=== PATIENT | female | born 2000 | race Caucasian/White ===

== ENCOUNTER 2019-03-24 16:57 | Emergency (ER) | payer OTHER ==
[2019-03-24 17:16] VITALS: BP 124/69; PULSE 83; RESP 16; TEMP 98
--- NOTE | 2019-03-24 18:29 | ED ---
Skin/Abscess/FB HPI - General Chief complaint: Needlestick/Exposure Stated complaint: [facility]-Needlestick Time Seen by Provider: 03/24/19 17:19 Source: patient Mode of arrival: ambulatory Limitations: no limitations - History of Present Illness Initial comments: Patient is a 18-year-old female presenting after a needlestick injury to her right index finger. 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 Patient is aware of the source. Patient states the area did bleed after the needlestick. Patient did wash the area immediately with soap and water. Patient was then recommended to come to ER for further evaluation. Patient denies fever, chills. No other complaints at this time. Upon arrival to ER, vital signs are stable. - Related Data Home Medications Medication Instructions Recorded Confirmed No Known Home Medications 05/22/14 05/22/14 Allergies Allergy/AdvReac Type Severity Reaction Status Date / Time No Known Allergies Allergy Verified 03/24/19 17:13 Review of Systems ROS Statement: Those systems with pertinent positive or pertinent negative responses have been documented in the HPI. ROS Other: All systems not noted in ROS Statement are negative. Past Medical History Past Medical History: No Reported History History of Any Multi-Drug Resistant Organisms: None Reported Past Surgical History: No Surgical Hx Reported Past Psychological History: No Psychological Hx Reported Smoking Status: Never smoker Past Alcohol Use History: None Reported Past Drug Use History: None Reported General Exam - General Exam Comments Initial Comments: GENERAL: Well-appearing, well-nourished and in no acute distress. HEAD: Atraumatic, normocephalic. EYES: Pupils equal round and reactive to light, extraocular movements intact, sclera anicteric, conjunctiva are normal. ENT: Nares patent, oropharynx clear without exudates. Moist mucous membranes. NECK: Normal range of motion, supple without lymphadenopathy or JVD. LUNGS: Breath sounds clear to auscultation bilaterally and equal. No wheezes rales or rhonchi. HEART: Regular rate and rhythm without murmurs, rubs or gallops. EXTREMITIES: Normal range of motion, no pitting or edema. No clubbing or cyanosis. NEUROLOGICAL: Cranial nerves II through XII grossly intact. Normal speech, normal gait. PSYCH: Normal mood, normal affect. SKIN: Warm, Dry, normal turgor, no rashes or lesions noted, including on the right index finger, palmar aspect. Limitations: no limitations Course Vital Signs 03/24/19 17:13 Temperature 98.0 F Pulse Rate 83 Respiratory 16 Rate Blood Pressure 124/69 O2 Sat by Pulse 100 Oximetry Medical Decision Making - Medical Decision Making Patient is a 18-year-old female presenting for needle stick injury to her right index finger that happened today. Patient is aware of the source who is a 2-year-old. Blood was not drawn from the source. The source is up-to-date with her vaccines. Patient is refusing blood testing and prophylactic treatment at this time. Patient will follow up with her PCP as needed. Patient is stable for discharge at this time. Return parameters were discussed with the patient she verbalized understanding. Case discussed with Dr. Garvin. Disposition Clinical Impression: Needlestick injury of finger of right hand Disposition: HOME SELF-CARE Condition: Stable Additional Instructions: Please return to the Emergency Department if symptoms worsen or any other concerns. Follow up with PCP as needed. Is patient prescribed a controlled substance at d/c from ED?: No Referrals: Silvina Zuniga MD [Primary Care Provider] - 1-2 days
== END 2019-03-24 18:40 | disposition home or self-care (01) ==
LOC: EC 16:57
DX: S69.91XA Unspecified injury of right wrist, hand and finger(s), initial encounter (principal); W46.0XXA Contact with hypodermic needle, initial encounter; Y93.89 Activity, other specified; Y92.531 Health care provider office as the place of occurrence of the external cause; Y99.0 Civilian activity done for income or pay
CPT/HCPCS: 99282